=== PATIENT | female | born 2000 | race Caucasian/White ===

== ENCOUNTER 2018-03-23 13:58 | Inpatient (IN) | payer BC ==
[2018-03-23 14:29] LABS: ABS Basophils 0.1 10^3/ul (0-0.2); ABS Eosinophils 0.1 10^3/ul (0-0.6); ABS Lymphocytes 1.6 10^3/ul (1.0-4.8); ABS Monocytes 0.6 10^3/ul (0-0.8); ABS Neutrophils 5.3 10^3/ul (1.5-7.7); ABS Nucleated RBC 0 10^3/ul; Eosinophil % 0.7 % (0-6); Hematocrit 46 % (35-47); Hemoglobin 16.1 g/dl (12.0-16.0); Lymphocyte % 21.4 % (25-47); Mean Corpuscular HGB Conc 35 g/dl (31-36); Mean Corpuscular Hemoglobin 33 pg (27-31); Mean Corpuscular Volume 95 fL (80-97); Mean Platelet Volume 7.7 um3 (7.4-10.4); Nucleated Red Blood Cells % 0; Platelet Count 289 10^3/ul (150-450); Red Blood Count 4.89 10^6/ul (4.0-5.4); Red Cell Distribution Width 13 % (10.5-15); White Blood Count 7.7 10^3/ul (3.5-10.8)
[2018-03-23 14:45] LABS: EGFR Non-African American 95.6 (>60)
[2018-03-23] MEDS ORDERED: Al Hydrox/Mg Hydrox/Simet LIQ* 30 ML UDC PO PRN (23:29)
[2018-03-23] MEDS ORDERED: Acetaminophen TAB* 325 MG PO PRN (23:29)
--- NOTE | 2018-03-23 23:55 | ED ---
Tyler Kelley Natalie, scribed for James Bland MD on 03/23/18 at 2300 . Progress - Progress Note Progress Note: The patient is a sign-out from Dr. Valle at shift change. The patient will be voluntarily admitted to [facility] to Dr. Allison with dx of depressive disorder, unspecified. - Consult/PCP Time Called: 18:00 Course/Dx - Diagnoses Provider Diagnoses: Depressive disorder, not elsewhere classified Discharge - Sign-Out/Discharge Documenting (check all that apply): Discharge/Admit/Transfer - Discharge Plan Condition: Good Disposition: ADMITTED TO [facility] Referrals: Chandler Bean MD [Primary Care Provider] - - Billing Disposition and Condition Condition: GOOD Disposition: [facility] The documentation as recorded by the Tyler carrasco Natalie accurately reflects the service I personally performed and the decisions made by Baldo nava Kirk, MD.
[2018-03-24] MEDS: TESTOSTERONE GEL 25 MG (NF) IN 2.5 GM SIZE PACKET TOPICAL SCH ×2 (00:25→21:43)
[2018-03-24] MEDS ORDERED: Vitamin THERAPEUTIC TAB ONE (07:46)
[2018-03-24] MEDS: Vitamin THERAPEUTIC TAB PO SCH (09:45)
[2018-03-24] MEDS ORDERED: Ondansetron ODT TAB* 4 MG PO PRN (13:56)
--- NOTE | 2018-03-24 21:19 | HP ---
HISTORY AND PHYSICAL: DATE OF ADMISSION: 03/24/18 PROVIDER: Carmen Stanton NP, in Psychiatry. SUPERVISING PHYSICIAN: Dave Choi MD * (DICTATED BY CARMEN STANTON NP ) JUSTIFICATION FOR ADMISSION: The patient is in need of 24-hour supervision and care secondary to suicidal ideation. CHIEF COMPLAINT: "I've gotten really good of pretending I'm okay." HISTORY OF PRESENT ILLNESS: The patient is a 18-year-old female to male transgendered person, who is partnered, who has a history of depression and apparently manic episodes, who arrives by car and is on a voluntary status after having suicidal ideation and discussing it with a friend of his. The story is that Regino took Prozac prescribed by Lucius Schneider MD, and then became manic, feeling "amazing" until a few days later, there was "a crash," which he describes as a deep depression that included suicidal ideation. He talks about cycling moods that take a month or more or less to complete. His symptoms include when he is manic, decreased sleep, increased interest in things for example wanting to create a comic book that was hundreds of thousands of pages long, increased energy. He does not ever have a very good appetite and not thinking of suicide while manic and very talkative and goal directed. He also states that he made a lot of foolish mistakes in decision making when he was manic. When he is depressed, the most salient point is that he is suicidal, he has no energy, he does not want to get out of bed, he can barely go to work, interest in life is very low, and his sleep is much increased up to 12 to 16 hours a day. PAST PSYCHIATRIC HISTORY: Regino has been hospitalized 2 times on the adolescent unit here. He did have a suicide attempt at his last visit, which was 2 years ago. This past December of 2017, he discovered that he had a marijuana problem in that he smokes every day, panics when he does not have it and gets highly anxious. We discussed medications that might be appropriate for this as well as treatments and we will discuss those further. PAST MEDICAL HISTORY: There is nothing pathological, although he does take testosterone gel because he is transitioning from female to male. FAMILY HISTORY: He has a sister, who is 27, who has bipolar; a brother, who is 25, who has a "normal family." Mom and sister visited him today. [place]. He approximates 60% of the population were Yarsanism. He moved away at age 14. He discovered at ages 10 to 11 that he was trans, which was alarming in that community. He says he is not close to the family, but that they are supportive. SUBSTANCE ABUSE: He uses marijuana almost exclusively. He is not in any treatment for that right now, although he recognizes recently that it is a problem. SOCIAL HISTORY: He was raised in [place]. Currently, lives with his friend. He did not say there was anything more to that relationship. He enjoys drawing, music, video games. He used to read, but has stopped at this point. 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 He is not in any continuing school, he says this is not for him. No service, no legal problems. The friend he lives with is at her parent's house. REVIEW OF SYSTEMS: The patient reports feeling slightly fatigued. Denies shortness of breath, heat or cold intolerance, chest pain or abdominal pain. He denies neurological symptoms. Denies fevers or changes of weight. PHYSICAL EXAMINATION VITAL SIGNS: Include height of 5 feet 7 inches, weight 145 pounds. Temperature 97.6, pulse 63, respirations 14, oxygen sat is 100%, blood pressure is 102/67. For further exam data, please see emergency department records. MENTAL STATUS EXAMINATION: This is a slim person with male characteristics, who has short brown hair. He was well groomed. He is calm and cooperative. His speech is of normal rate, tone, and volume. He appears to be euthymic, but is also distressed and anxious under the surface. His thought processes are normal. He does not have any delusions. He is not homicidal. He does have suicidal ideation today. He does not have hallucinations. His insight is good. His judgment is fair. He is alert and oriented x3. He is an intelligent man. LABORATORY DATA: Samples that were drawn in the emergency room are either within normal limits or very close to normal limits. There is nothing alarming. DIAGNOSES: Bim I: Bipolar 1 disorder, current episode depressed. Bim II: Deferred. 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 IMPRESSION: This is a 18-year-old transgendered person transitioning from female to male, who also appears to have bipolar disorder as evidenced by manic episode triggered by Prozac administration. At the end of the manic episode, Regino became quite distressed and was having suicidal thoughts and thus came to the hospital. PLAN: The patient is admitted to the adult behavioral health unit and placed on q.15-minute checks for his own safety. The patient is encouraged to participate in supportive milieu, individual, and group therapy. Estimated length of stay is 5 to 7 days. We will titrate medications to efficacy and monitor for mood and thought content. Discharge planning will include outpatient providers. CARMEN STANTON, AURELIANO [id number]/CPS #: [id number] RADHA
[2018-03-24] MEDS: ARIPiprazole TAB* 5 MG PO SCH (21:44)
[2018-03-24] MEDS: FLUoxetine CAP* 20 MG PO SCH ×2 (21:44)
[2018-03-24] MEDS: Mirtazapine TAB* 15 MG PO SCH ×2 (21:44)
[2018-03-25] MEDS: Vitamin THERAPEUTIC TAB PO SCH (08:38)
--- NOTE | 2018-03-25 11:50 | ED ---
Elia Kelley Gabriel, scribed for Jace Valle MD on 03/23/18 at 1434 . Psychiatric Complaint - HPI Summary HPI Summary: This patient is a 18 year old F presenting to [facility] c/o of a depressive episode and SI. Last night she had a huge breakdown and is worried she has bipolar disorder which runs in the family. Patient reports a large wave of energy that ended with a large episode of depression. - History Of Current Complaint Chief Complaint: EDMentalHealth Time Seen by Provider: 03/23/18 14:03 Hx Obtained From: Patient Onset/Duration: Still Present Timing: Constant Severity Initially: Moderate Severity Currently: Moderate Character: Depressed Related History: Positive For: Prior Psychiatric Issues Has Suicidal: Reports: Thoughts - Allergies/Home Medications Allergies/Adverse Reactions: Allergies Allergy/AdvReac Type Severity Reaction Status Date / Time corn Allergy Unknown Verified 03/25/18 09:38 Reaction Details Home Medications: Home Medications Androgel Pump 2 pump TOPICAL DAILY 03/23/18 [History Confirmed 03/23/18] FLUoxetine CAP* [PROzac CAP*] 20 mg PO DAILY 03/23/18 [History Confirmed ] Mirtazapine TAB* [Remeron TAB*] 30 mg PO DAILY 03/23/18 [History Confirmed 03/23] PMH/Surg Hx/FS Hx/Imm Hx Respiratory History: Reports: Hx Asthma GI History: Reports: Other GI Disorders - Counselor Intolerance Musculoskeletal History: Reports: Hx Scoliosis Psychiatric History: Reports: Hx Anxiety, Hx Depression, Hx Panic Disorder, Hx Inpatient Treatment, Hx Community Mental Health Tx Denies: Hx Attention Deficit Hyperactivity Disorder, Hx Eating Disorder, Hx Post Traumatic Stress Disorder, Hx Schizophrenia, Hx Bipolar Disorder, Hx Suicide Attempt, Hx of Violent Episodes Against Others, Hx Substance Abuse, Other Psychiatric Issues/Disorders - Surgical History Surgery Procedure, Year, and Place: Scoliosis Repair, [place] Teeth Extraction Infectious Disease History: No Infectious Disease History: Denies: Traveled Outside the [place] in Last 30 Days - Family History Known Family History: Negative: Renal Disease, Respiratory Disease - Social History Alcohol Use: Rare Substance Use Type: Reports: None Smoking Status (MU): Never Smoked Tobacco Review of Systems Negative: Fever Positive: Depressed, Other - SI All Other Systems Reviewed And Are Negative: Yes Physical Exam - Summary Physical Exam Summary: VITAL SIGNS: Reviewed. GENERAL: Patient is a well-developed and nourished male who is lying comfortable in the stretcher. Patient is not in any acute respiratory distress. HEAD AND FACE: No signs of trauma. No ecchymosis, hematomas or skull depressions. No sinus tenderness. EYES: PERRLA, EOMI x 2, No injected conjunctiva, no nystagmus. EARS: Hearing grossly intact. Ear canals and tympanic membranes are within normal limits. MOUTH: Oropharynx within normal limits. NECK: Supple, trachea is midline, no adenopathy, no JVD, no carotid bruit, no c- spine tenderness, neck with full ROM. CHEST: Symmetric, no tenderness at palpation LUNGS: Clear to auscultation bilaterally. No wheezing or crackles. CVS: Regular rate and rhythm, S1 and S2 present, no murmurs or gallops appreciated. ABDOMEN: Soft, non-tender. No signs of distention. No rebound no guarding, and no masses palpated. Bowel sounds are normal. EXTREMITIES: FROM in all major joints, no edema, no cyanosis or clubbing. NEURO: Alert and oriented x 3. No acute neurological deficits. Speech is normal and follows commands. SKIN: Dry and warm PSYCH: Depressed, quiet, and denies any suicidal thoughts or plan. No homicidal thoughts or plan. No signs of psychosis or pressure speech. No tangential speech. Triage Information Reviewed: Yes Vital Signs On Initial Exam: Initial Vitals Temp Pulse Resp BP Pulse Ox 97.9 F 80 18 132/88 100 03/23/18 14:01 03/23/18 14:01 03/23/18 14:01 03/23/18 14:01 03/23/18 14:01 Vital Signs Reviewed: Yes Diagnostics - Vital Signs Vital Signs Temp Pulse Resp BP Pulse Ox 03/23/18 14:01 97.9 F 80 18 132/88 100 - Laboratory Lab Results: Lab Results 03/23/18 Range/Units 14:23 WBC 7.7 (3.5-10.8) 10^3/ul RBC 4.89 (4.0-5.4) 10^6/ul Hgb 16.1 H (12.0-16.0) g/dl Hct 46 (35-47) % MCV 95 (80-97) fL MCH 33 H (27-31) pg MCHC 35 (31-36) g/dl RDW 13 (10.5-15) % Plt Count 289 (150-450) 10^3/ul MPV 7.7 (7.4-10.4) um3 Neut % (Auto) 68.6 (38-83) % Lymph % (Auto) 21.4 L (25-47) % Rhea % (Auto) 8.4 H (0-7) % Eos % (Auto) 0.7 (0-6) % Baso % (Auto) 0.9 (0-2) % Absolute Neuts (auto) 5.3 (1.5-7.7) 10^3/ul Absolute Lymphs (auto) 1.6 (1.0-4.8) 10^3/ul Absolute Monos (auto) 0.6 (0-0.8) 10^3/ul Absolute Eos (auto) 0.1 (0-0.6) 10^3/ul Absolute Basos (auto) 0.1 (0-0.2) 10^3/ul Absolute Nucleated RBC 0 10^3/ul Nucleated RBC % 0 Result Diagrams: 03/23/18 14:23 03/23/18 14:23 Lab Statement: Any lab studies that have been ordered have been reviewed, and results considered in the medical decision making process. Course/Dx - Course Assessment/Plan: Blood work w/o a significant abnormality. She is medically cleared. She is awaiting for a MHE. Patient is hemodynamically stable and A+O x 3. Patient will be signed out to Dr. Bland at shift change. - Differential Dx/Clinical Impression Provider Diagnosis: Depressive disorder, not elsewhere classified Discharge - Sign-Out/Discharge Documenting (check all that apply): Sign-Out Patient Signing out patient TO: James Bland - Discharge Plan Condition: Good Disposition: ADMITTED TO [facility] - Billing Disposition and Condition Condition: GOOD Disposition: [facility]P-[facility] The documentation as recorded by the Elia carrasco Gabriel accurately reflects the service I personally performed and the decisions made by , Jace Valle MD.
--- NOTE | 2018-03-25 15:45 | PN ---
Subjective - Subjective Date of Service: 03/25/18 Service Type: 95617 Hosp care 25 min moderate complexity Subjective: "Regino" remains sad and blue today. He continues to contemplate suicide, although this is remitting a bit. Regino is very interested to know more about bipolar disorder and I agree to get him a list of books that might be helpful. We discuss his family a bit and he states he might need to be honest with his mom in the future about how she seems to overreact to him, so much so that he moved out of the house. Objective - Appearance Appearance: Thin Framed Dysmorphic Features: No Hygiene: Normal Grooming: Well Kept - Behavior Psychomotor Activities: Normal Exhibits Abnormal Movement: No - Attitude and Relatedness Attitude and Relatedness: Well Related Eye Contact: Fair - Speech Quality: Unpressured Latencies: Normal Quantity: Appropriate - Mood Patient's Decription of Mood: "Sad" - Affect Observed Affect: Fair Affect Consistent with: Dysphoria - Thought Process Patient's Thought Process: Coherent Thought Content: Yes Passive Wish, No Suicidal Planning, No Homicidal Ideation, No Paranoid Ideation - Sensorium Experiencing Hallucinations: No, Sensorium is Clear Type of Hallucinations: Visual: No, Auditory: No, Command: No - Level of Consciousness Level of Consciousness: Alert Orientation: Yes Intact, Yes Orientated to Time, Yes Orientated to Place, Yes Orientated to Person - Impulse Control Impulse Control: Tenuous - Insight and Judgement Insight and Judgement: Fair - Group Participation Particating in Group Activities: Yes - Medication Management Medication Management Adherence: Yes - Additional Observations Comments: Regino appears sad and forlorn. He feels like he has suicidal thoughts the continue to pop up throughout the day. These thoughts are frightening to him and he feels like he might act on them if he were released. Assessment - Assessment Merits Inpatient Hospitalization: For Immediate Safety Clinical Impression: Regino is a 18-year-old female to male transgender adult who suffers from bipolar disorder and is in the process of learning to deal with this stressor. Plan - Plan Treatment Plan: Name: LEFTY NIEVES Birthdate: 2000 [id number] Medications: Current Medications Acetaminophen (Tylenol Tab*) 650 mg PO Q4H PRN PRN Reason: PAIN or TEMP > 101 F Al Hydrox/Mg Hydrox/Simethicone (Maalox Plus*) 30 ml PO Q4H PRN PRN Reason: INDIGESTION Aripiprazole (Abilify Tab*) 5 mg PO BEDTIME [facility] Last Admin: 03/24/18 21:44 Dose: 5 mg Mirtazapine (Remeron Tab*) 30 mg PO BEDTIME MARC Last Admin: 03/24/18 21:44 Dose: 30 mg Multivitamins (Theragran Tab*) 1 tab PO DAILY [facility] Last Admin: 03/25/18 08:38 Dose: Not Given Ondansetron HCl (Zofran Odt Tab*) 4 mg PO Q8H PRN PRN Reason: NAUSEA/VOMITING Testosterone (Testosterone Gel 25 Mg/2.5 G) 50 mg TOPICAL BEDTIME [facility] Stop: 03/31/18 00:14 Last Admin: 03/24/18 21:43 Dose: 50 mg - Discharge Plan Discharge Plan: Outpatient Follow Up Additional Comments: Regino is planning to stay through the weekend to aid in the goal of reducing suicidal thoughts. he will stay with the intention of building skills and allowing medications to work.
[2018-03-25] MEDS: ARIPiprazole TAB* 5 MG PO SCH (20:27)
[2018-03-25] MEDS: TESTOSTERONE GEL 25 MG (NF) IN 2.5 GM SIZE PACKET TOPICAL SCH (20:27)
[2018-03-25] MEDS: Mirtazapine TAB* 15 MG PO SCH (20:27)
[2018-03-26] MEDS: Vitamin THERAPEUTIC TAB PO SCH (09:45)
--- NOTE | 2018-03-26 15:26 | PN ---
Subjective - Subjective Date of Service: 03/26/18 Service Type: [id number] Hosp care 25 min moderate complexity Subjective: Regino is feeling conflicted about his relationship with his father. Regino is feeling anxious about calling his dad. Both his parents have not been supportive of Regino's choice to transition to male. He is working hard to make money to pay for the surgery himself. He feels like his parents are not understanding and never really have been. Oddly, his mom mentioned on the phone while he's been hospitalized here that she thinks he has Asperger's disorder. That was upsetting to Regino, who has never felt good enough. Regino also talked about his conversation with his dad when his dad revealed he was going to divorce Regino's mother while his mother was psychiatrically hospitalized. In all , the dynamics of the family prove to be confusing and triggering. Objective - Appearance Appearance: Healthy Appearing Dysmorphic Features: No Hygiene: Normal Grooming: Well Kept - Behavior Psychomotor Activities: Normal Exhibits Abnormal Movement: No - Attitude and Relatedness Attitude and Relatedness: Cooperative Eye Contact: Fair - Speech Quality: Unpressured Latencies: Normal Quantity: Appropriate - Mood Patient's Decription of Mood: "Anxious" - Affect Observed Affect: Tense Affect Consistent with: Dysphoria - Thought Process Patient's Thought Process: Coherent Thought Content: Yes Passive Wish, Yes Suicidal Planning, No Homicidal Ideation, No Paranoid Ideation - Sensorium Experiencing Hallucinations: No, Sensorium is Clear Type of Hallucinations: Visual: No, Auditory: No, Command: No - Level of Consciousness Level of Consciousness: Alert Orientation: Yes Intact, Yes Orientated to Time, Yes Orientated to Place, Yes Orientated to Person - Impulse Control Impulse Control: Impaired - Insight and Judgement Insight and Judgement: Fair - Group Participation Particating in Group Activities: Yes - Medication Management Medication Management Adherence: Yes - Additional Observations Comments: Regino appears sad and forlorn. He feels like he has suicidal thoughts the continue to pop up throughout the day. These thoughts are frightening to him and he feels like he might act on them if he were released. Today he appears with increased anxiety related to family conflict and personal challenges. The anxiety seems to have destabilized him and led him to increased vulnerability to suicidal thoughts. Assessment - Assessment Merits Inpatient Hospitalization: For Immediate Safety Inpatient DSM-V Dx: F31.12 Clinical Impression: Regino is a 18-year-old female to male transgender adult who suffers from bipolar disorder and is in the process of learning to deal with this stressor. He is anxious today and frustrated that his anxiety seems to be free floating, although upon further examination, it appears to stem from relationship issues between him and his parents. In any case, his response to their relationship conflict seems to have caused him to have increased suicidal thoughts. Plan - Plan Treatment Plan: Name: LEFTY NIEVES Birthdate: 2000 [id number] Medications: Current Medications Acetaminophen (Tylenol Tab*) 650 mg PO Q4H PRN PRN Reason: PAIN or TEMP > 101 F Al Hydrox/Mg Hydrox/Simethicone (Maalox Plus*) 30 ml PO Q4H PRN PRN Reason: INDIGESTION Aripiprazole (Abilify Tab*) 5 mg PO BEDTIME MARC Last Admin: 03/25/18 20:27 Dose: 5 mg Mirtazapine (Remeron Tab*) 30 mg PO BEDTIME MARC Last Admin: 03/25/18 20:27 Dose: 30 mg Multivitamins (Theragran Tab*) 1 tab PO DAILY M[facility] Last Admin: 03/26/18 09:45 Dose: Not Given Ondansetron HCl (Zofran Odt Tab*) 4 mg PO Q8H PRN PRN Reason: NAUSEA/VOMITING Testosterone (Testosterone Gel 25 Mg/2.5 G) 50 mg TOPICAL BEDTIME MARC Stop: 03/31/18 00:14 Last Admin: 03/25/18 20:27 Dose: 50 mg - Discharge Plan Additional Comments: Regino is planning to stay through the weekend to aid in the goal of reducing suicidal thoughts. he will stay with the intention of building skills and allowing medications to work. He will use the supportive environment to make contact with family members whose prior behaviors would have destabilized Regino.
[2018-03-26] MEDS: TESTOSTERONE GEL 25 MG (NF) IN 2.5 GM SIZE PACKET TOPICAL SCH (21:11)
[2018-03-26] MEDS: Mirtazapine TAB* 15 MG PO SCH (21:11)
[2018-03-26] MEDS: ARIPiprazole TAB* 5 MG PO SCH (21:11)
[2018-03-27] MEDS: Vitamin THERAPEUTIC TAB PO SCH (07:27)
--- NOTE | 2018-03-27 16:22 | PN ---
Subjective - Subjective Date of Service: 03/27/18 Service Type: [id number] Hosp care 15 min low complexity Subjective: Elsa is complaining of her mind racing and feeling happy. In the milieu interacting with peers. Slept 6 hours last night and eating good. Denies active suicidal thoughts or intents. Denies hallucinations or delusions. Objective - Appearance Appearance: Healthy Appearing Dysmorphic Features: No Hygiene: Normal Grooming: Well Kept - Behavior Psychomotor Activities: Normal Exhibits Abnormal Movement: No - Attitude and Relatedness Attitude and Relatedness: Appropriate Eye Contact: Good - Speech Quality: Unpressured Latencies: Normal Quantity: Appropriate - Mood Patient's Decription of Mood: "Good" - Affect Observed Affect: Non-labile - Thought Process Patient's Thought Process: Coherent, Goal Directed Thought Content: No Passive Wish, No Suicidal Planning, No Homicidal Ideation, No Paranoid Ideation - Sensorium Experiencing Hallucinations: No, Sensorium is Clear Type of Hallucinations: Visual: No, Auditory: No, Command: No - Level of Consciousness Level of Consciousness: Alert Orientation: Yes Intact, Yes Orientated to Time, Yes Orientated to Place, Yes Orientated to Person - Impulse Control Impulse Control: Intact - Insight and Judgement Insight and Judgement: Fair - Group Participation Particating in Group Activities: Yes - Medication Management Medication Management Adherence: Yes Assessment - Assessment Merits Inpatient Hospitalization: For Immediate Safety, For Stabilization, For Discharge Planning, Pending Safe DC Plan Inpatient DSM-V Dx: F31.12 Plan - Plan Treatment Plan: Name: ELSA NIEVES Birthdate: 2000 [id number] Continued Medication Management: Continue Outpt Medication Medications: Current Medications Acetaminophen (Tylenol Tab*) 650 mg PO Q4H PRN PRN Reason: PAIN or TEMP > 101 F Al Hydrox/Mg Hydrox/Simethicone (Maalox Plus*) 30 ml PO Q4H PRN PRN Reason: INDIGESTION Aripiprazole (Abilify Tab*) 5 mg PO BEDTIME MARC Last Admin: 03/26/18 21:11 Dose: 5 mg Mirtazapine (Remeron Tab*) 30 mg PO BEDTIME MARC Last Admin: 03/26/18 21:11 Dose: 30 mg Multivitamins (Theragran Tab*) 1 tab PO DAILY MARC Last Admin: 03/27/18 07:27 Dose: Not Given Ondansetron HCl (Zofran Odt Tab*) 4 mg PO Q8H PRN PRN Reason: NAUSEA/VOMITING Testosterone (Testosterone Gel 25 Mg/2.5 G) 50 mg TOPICAL BEDTIME MARC Stop: 03/31/18 00:14 Last Admin: 03/26/18 21:11 Dose: 50 mg - Discharge Plan Discharge Plan: Outpatient Follow Up Outpatient Program: [facility]
[2018-03-27] MEDS: ARIPiprazole TAB* 5 MG PO SCH (20:59)
[2018-03-27] MEDS: Mirtazapine TAB* 15 MG PO SCH (21:00)
[2018-03-27] MEDS: TESTOSTERONE GEL 25 MG (NF) IN 2.5 GM SIZE PACKET TOPICAL SCH (21:01)
[2018-03-28] MEDS: Vitamin THERAPEUTIC TAB PO SCH (08:53)
[2018-03-28] MEDS: ARIPiprazole TAB* 5 MG PO SCH (21:13)
[2018-03-28] MEDS: Mirtazapine TAB* 15 MG PO SCH (21:14)
[2018-03-28] MEDS: TESTOSTERONE GEL 25 MG (NF) IN 2.5 GM SIZE PACKET TOPICAL SCH (21:15)
[2018-03-29] MEDS: Vitamin THERAPEUTIC TAB PO SCH (09:08)
--- NOTE | 2018-03-29 11:13 | PN ---
Subjective - Subjective Date of Service: 03/29/18 Service Type: 82037 Hosp care 15 min low complexity Subjective: Regino is doing well. He feels better and is in good spirits. He is unsure if it is the groups, the meds, or the time, but he feels better. His father visited and he got a lot of misunderstandings sorted out. His mom and sister are going to visit today and he is excited. Objective - Appearance Appearance: Healthy Appearing Hygiene: Normal Grooming: Fairly Well Kept - Behavior Psychomotor Activities: Normal Exhibits Abnormal Movement: No - Attitude and Relatedness Attitude and Relatedness: Well Related Eye Contact: Good - Speech Quality: Unpressured Latencies: Normal Quantity: Appropriate - Mood Patient's Decription of Mood: "Great" - Affect Observed Affect: Good Affect Consistent with: Euthymia - Thought Process Patient's Thought Process: Coherent Thought Content: No Passive Wish, No Suicidal Planning, No Homicidal Ideation, No Paranoid Ideation - Sensorium Experiencing Hallucinations: No, Sensorium is Clear Type of Hallucinations: Visual: No, Auditory: No, Command: No - Level of Consciousness Level of Consciousness: Alert Orientation: Yes Intact, Yes Orientated to Time, Yes Orientated to Place, Yes Orientated to Person - Impulse Control Impulse Control: Intact - Insight and Judgement Insight and Judgement: Good - Group Participation Particating in Group Activities: Yes - Medication Management Medication Management Adherence: Yes - Additional Observations Comments: Regino is disheveled from just having gotten out of bed. He is happy and pleasant and has confidence in his ability to say that he's feeling significantly better. He is well related and ready to consider discharge. Assessment - Assessment Merits Inpatient Hospitalization: For Stabilization Inpatient DSM-V Dx: F31.12 Clinical Impression: Regino is a 18-year-old female to male transgender adult who suffers from bipolar disorder and is in the process of learning to deal with this stressor. Regino is learning that his family is more supportive than he thought. He is feeling more stable and is confident in his ability to go on without suicidal thoughts. Plan - Plan Treatment Plan: Name: LEFTY NIEVES Birthdate: 2000 [id number] Medications: Current Medications Acetaminophen (Tylenol Tab*) 650 mg PO Q4H PRN PRN Reason: PAIN or TEMP > 101 F Al Hydrox/Mg Hydrox/Simethicone (Maalox Plus*) 30 ml PO Q4H PRN PRN Reason: INDIGESTION Aripiprazole (Abilify Tab*) 5 mg PO BEDTIME [facility] Last Admin: 03/28/18 21:13 Dose: 5 mg Mirtazapine (Remeron Tab*) 30 mg PO BEDTIME MARC Last Admin: 03/28/18 21:14 Dose: 30 mg Multivitamins (Theragran Tab*) 1 tab PO DAILY [facility] Last Admin: 03/29/18 09:08 Dose: Not Given Ondansetron HCl (Zofran Odt Tab*) 4 mg PO Q8H PRN PRN Reason: NAUSEA/VOMITING Testosterone (Testosterone Gel 25 Mg/2.5 G) 50 mg TOPICAL BEDTIME MARC Stop: 03/31/18 00:14 Last Admin: 03/28/18 21:15 Dose: 50 mg - Discharge Plan Discharge Plan: Outpatient Follow Up Additional Comments: Regino is planning to stay through the weekend to aid in the goal of reducing suicidal thoughts. he will stay with the intention of building skills and allowing medications to work. He will use the supportive environment to make contact with family members whose prior behaviors would have destabilized Regino. Update: Amparo met with his dad and his mom and sister are coming today. Despite having had difficulty with those relationships, he is discovering that they will be useful outpatient and he is excited to have these renewed contacts.
[2018-03-29] MEDS: TESTOSTERONE GEL 25 MG (NF) IN 2.5 GM SIZE PACKET TOPICAL SCH (20:56)
[2018-03-29] MEDS: Mirtazapine TAB* 15 MG PO SCH (20:56)
[2018-03-29] MEDS: ARIPiprazole TAB* 5 MG PO SCH (20:57)
[2018-03-30 07:51] VITALS: BP 114/75
[2018-03-30] MEDS: Vitamin THERAPEUTIC TAB PO SCH (11:53)
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
== END 2018-03-30 12:25 | disposition home or self-care (01) | DRG 753 ==
LOC: ED 13:58 → BSU 03-24 01:50
PROVIDERS: ADMIT Psychiatry & Neurology Psychiatry; ATTEND Psychiatry & Neurology Psychiatry
DX: F31.12 Bipolar disorder, current episode manic without psychotic features, moderate (principal); R45.851 Suicidal ideations; F12.90 Cannabis use, unspecified, uncomplicated; J45.909 Unspecified asthma, uncomplicated; F41.0 Panic disorder [episodic paroxysmal anxiety]; Z72.89 Other problems related to lifestyle; Z81.8 Family history of other mental and behavioral disorders; Z91.018 Allergy to other foods
CPT/HCPCS: 36415; 80053; 80061; 80307; 80320; 80329; 83036; 84443; 85025; 99222; 99231; 99232; 99285; A9270-GY; G0480

== ENCOUNTER 2019-04-10 13:02 | Emergency (ER) | payer BC ==
[2019-04-10 13:29] VITALS: BP 104/63
--- NOTE | 2019-04-10 13:32 | UC ---
Ear Complaint HPI - HPI Summary HPI Summary: Mild left earache and feeling of fullness over the past few days. No recent cold symptoms. - History of Current Complaint Chief Complaint: UCEar Stated Complaint: EAR PAIN Time Seen by Provider: 04/10/19 13:20 Hx Obtained From: Patient Hx Last Menstrual Period: unknown ?: No Onset/Duration: Gradual Onset Severity Initially: Mild Severity Currently: Mild Pain Intensity: 0 Aggravating Factors: Nothing Alleviating Factors: Nothing - Allergies/Home Medications Allergies/Adverse Reactions: Allergies Allergy/AdvReac Type Severity Reaction Status Date / Time corn Allergy Vomiting Verified 04/10/19 13:29 Home Medications: Home Medications Dextroamphetamine/Amphetamine [Adderall 20 mg Tablet] 1 tab PO DAILY 04/10/19 [ History Confirmed 04/10/19] lamoTRIgine [Lamictal] 100 mg PO DAILY 04/10/19 [History Confirmed 04/10/19] PMH/Surg Hx/FS Hx/Imm Hx Previously Healthy: Yes - Surgical History Surgical History: Yes Surgery Procedure, Year, and Place: Scoliosis Repair, [place] Teeth Extraction - Family History Known Family History: Negative: Renal Disease, Respiratory Disease - Social History Alcohol Use: Rare Substance Use Type: Marijuana Substance Use Comment - Amount & Last Used: states that she has been smoking marijuana daily since /Dec Smoking Status (MU): Never Smoked Tobacco Have You Smoked in the Last Year: No - Immunization History Most Recent Influenza Vaccination: Never Most Recent Pneumonia Vaccination: n/a Review of Systems All Other Systems Reviewed And Are Negative: Yes ENT: Positive: Ear Ache - Feeling of left ear fullness and mild discomfort. Is Patient Immunocompromised?: No Physical Exam Triage Information Reviewed: Yes Appearance: Well-Appearing, No Pain Distress, Well-Nourished Vital Signs: Initial Vital Signs Temp 98.1 F 04/10/19 13:23 Pulse 87 04/10/19 13:23 Resp 16 04/10/19 13:23 BP 104/63 04/10/19 13:23 Pulse Ox 99 04/10/19 13:23 Vital Signs Reviewed: Yes Eyes: Positive: Conjunctiva Clear ENT: Positive: Pharynx normal, Uvula midline, Other - Right TM normal, unable to visualize Left Tm due to cerumen impaction Neck: Positive: Supple, Nontender, No Lymphadenopathy Respiratory: Positive: Lungs clear, Normal breath sounds, No respiratory distress, No accessory muscle use Cardiovascular: Positive: RRR, No Murmur, Pulses Normal, Brisk Capillary Refill Musculoskeletal Exam: Normal Neurological Exam: Normal Psychological Exam: Normal Skin Exam: Normal Ear Complaint Course/Dx - Course Course Of Treatment: Ear lavage left ear done successfully by [facility] staff with warm water. I was able to remove cerumen from the right ear canal with the curette. Both TM's pearly estrada with good landmarks and light reflex. - Differential Dx/Diagnosis Provider Diagnosis: Impacted cerumen of left ear, Excessive cerumen in right ear canal Discharge - Sign-Out/Discharge Documenting (check all that apply): Patient Departure All imaging exams completed and their final reports reviewed: No Studies - Discharge Plan Condition: Good Disposition: HOME Patient Education Materials: Cerumen Impaction (ED) Referrals: Chandler Bean MD [Primary Care Provider] - Additional Instructions: Follow up with your primary care provider as needed. - Billing Disposition and Condition Condition: GOOD Disposition: Home - Attestation Statements Provider Attestation: Per institutional requirements, I have reviewed the chart, however, I was not consulted specifically or made aware of this patient by the midlevel provider. I did not personally evaluate, interact with , or disposition this patient.
== END 2019-04-10 13:54 | disposition home or self-care (01) ==
LOC: UCCORT 13:02
DX: H61.23 Impacted cerumen, bilateral (principal); Z91.018 Allergy to other foods
CPT/HCPCS: 69210; 99212; G0463

== ENCOUNTER 2020-08-12 11:01 | Inpatient (IN) ==
[2020-08-12 11:46] LABS: Urine Appearance Clear; Urine Bilirubin Negative (Negative); Urine Blood Negative (Negative); Urine Color Straw; Urine Glucose Negative (Negative); Urine Ketones Negative (Negative); Urine Nitrite Negative (Negative); Urine Protein Negative (Negative); Urine Specific Gravity 1.003 (1.010-1.030); Urine Urobilinogen Negative (Negative)
[2020-08-12 12:03] LABS: Urine Benzodiazepine Screen None Detected (None Detect); Urine Cannabinoids Screen Presumptive Positive (None Detect); Urine Opiates Screen None Detected (None Detect)
[2020-08-12 12:52] LABS: ABS Basophils 0.1 10^3/ul (0-0.2); ABS Eosinophils 0.3 10^3/ul (0-0.6); ABS Lymphocytes 1.3 10^3/ul (1.0-4.8); ABS Monocytes 0.6 10^3/ul (0-0.8); ABS Neutrophils 5.2 10^3/ul (1.5-7.7); Hematocrit 42 % (35-47); Hemoglobin 14.8 g/dL (12.0-16.0); Lymphocyte % 17.1 %; Mean Corpuscular HGB Conc 35 g/dL (31-36); Mean Corpuscular Hemoglobin 33 pg (27-31); Mean Corpuscular Volume 95 fL (80-97); Mean Platelet Volume 6.8 fL (7.4-10.4); Platelet Count 299 10^3/uL (150-450); Red Blood Count 4.45 10^6 /uL (3.70-4.87); Red Cell Distribution Width 12 % (10-15); White Blood Count 7.4 10^3/uL (3.5-10.8)
[2020-08-12 13:10] LABS: ALT 17 U/L (7-52); AST 18 U/L (13-39); Albumin 4.6 g/dL (3.2-5.2); Albumin/Globulin Ratio 1.6 (1-3); Alkaline Phosphatase 62 U/L (34-104); Anion Gap 7 mmol/L (2-11); BUN/Creatinine Ratio 6.9 (8-20); Blood Urea Nitrogen 5 mg/dL (6-24); CO2 Carbon Dioxide 22 mmol/L (22-32); Calcium 9.8 mg/dL (8.6-10.3); Chloride 108 mmol/L (101-111); EGFR African American 122.6 (>60); EGFR Non-African American 101.3 (>60); Globulin 2.8 g/dL (2-4); Glucose 95 mg/dL (70-100); Sodium 137 mmol/L (135-145); Total Protein 7.4 g/dL (6.4-8.9)
[2020-08-12 13:16] LABS: Acetaminophen < 15 mcg/mL; Alcohol, S < 10 mg/dL (<10); Lithium 0.53 mmol/L (0.6-1.2); Salicylate < 2.50 mg/dL (<30)
[2020-08-12 13:31] LABS: TSH Ultra Thyroid Stim Horm 1.49 mcIU/mL (0.34-5.60)
[2020-08-12] MEDS ORDERED: Al Hydrox/Mg Hydrox/Simet LIQ 30 ML UDC PO PRN (17:02)
[2020-08-12] MEDS: Lithium Carbonate ER 450mg TAB PO SCH (22:04)
[2020-08-13] MEDS: Vitamin THERAPEUTIC TAB PO SCH (08:44)
[2020-08-13] MEDS ORDERED: Atomoxetine 10 mg CAP (NF) PO SCH (09:00)
[2020-08-13] MEDS ORDERED: Influenza VAC *QUAD* 2020-21* 0.5 ML SYRINGE IM ONE (09:00)
[2020-08-13] MEDS: Lithium Carbonate ER 450mg TAB PO SCH (21:35)
[2020-08-14 07:49] LABS: HDL Cholesterol 40.6 mg/dL
[2020-08-14] MEDS: Vitamin THERAPEUTIC TAB PO SCH (08:20)
[2020-08-14] MEDS ORDERED: CMC: Atomoxetine 18 mg CAP (NF) PO SCH (09:00)
[2020-08-14] MEDS ORDERED: Lithium Carbonate ER 450mg TAB PO SCH (21:00)
[2020-08-14] MEDS: Lithium Carb ER 300 mg TAB(NF) PO SCH (21:12)
[2020-08-15] MEDS: ATOMOXETINE 18 MG PO SCH (08:16)
[2020-08-15] MEDS: Vitamin THERAPEUTIC TAB PO SCH (08:18)
[2020-08-15] MEDS: Lithium Carb ER 300 mg TAB(NF) PO SCH (21:14)
[2020-08-16] MEDS: ATOMOXETINE 18 MG PO SCH (08:28)
[2020-08-16] MEDS: Vitamin THERAPEUTIC TAB PO SCH (08:30)
[2020-08-16] MEDS: Lithium Carb ER 300 mg TAB(NF) PO SCH (22:31)
[2020-08-17] MEDS: ATOMOXETINE 18 MG PO SCH (08:35)
[2020-08-17] MEDS: Vitamin THERAPEUTIC TAB PO SCH (09:59)
[2020-08-17] MEDS: Lithium Carb ER 300 mg TAB(NF) PO SCH (21:53)
[2020-08-18] MEDS: ATOMOXETINE 18 MG PO SCH (08:18)
[2020-08-18] MEDS: Vitamin THERAPEUTIC TAB PO SCH (08:19)
[2020-08-18] MEDS: Lithium Carb ER 300 mg TAB(NF) PO SCH (21:13)
[2020-08-19] MEDS: ATOMOXETINE 18 MG PO SCH (08:26)
[2020-08-19] MEDS: Vitamin THERAPEUTIC TAB PO SCH (08:26)
[2020-08-19] MEDS: Lithium Carb ER 300 mg TAB(NF) PO SCH (20:38)
[2020-08-20 08:04] VITALS: BP 121/75
[2020-08-20] MEDS: ATOMOXETINE 18 MG PO SCH (08:44)
[2020-08-20] MEDS: Vitamin THERAPEUTIC TAB PO SCH (08:44)
== END 2020-08-20 13:30 | disposition home or self-care (01) | DRG 753 ==
LOC: ED 11:01 → BSU 16:37
PROVIDERS: ADMIT Psychiatry & Neurology Psychiatry; ATTEND Psychiatry & Neurology Psychiatry

== ENCOUNTER 2022-08-04 12:38 | Inpatient (IN) ==
[2022-08-04 18:51] LABS: ABS Basophils 0.1 10^3/ul (0-0.2); ABS Eosinophils 0.5 10^3/ul (0-0.6); ABS Lymphocytes 2.5 10^3/ul (1.0-4.8); ABS Monocytes 0.7 10^3/ul (0-0.8); ABS Neutrophils 6.1 10^3/ul (1.5-7.7); Eosinophil % 5.3 %; Hematocrit 40 % (35-47); Hemoglobin 13.7 g/dL (12.0-16.0); Lymphocyte % 25.8 %; Mean Corpuscular HGB Conc 34 g/dL (31-36); Mean Corpuscular Hemoglobin 32 pg (27-31); Mean Corpuscular Volume 96 fL (80-97); Mean Platelet Volume 7.6 fL (7.4-10.4); Platelet Count 325 10^3/uL (150-450); Red Blood Count 4.22 10^6 /uL (3.70-4.87); Red Cell Distribution Width 13 % (10-15); White Blood Count 9.9 10^3/uL (3.5-10.8)
[2022-08-04 19:03] LABS: Urine Appearance Clear; Urine Bilirubin Negative (Negative); Urine Blood Negative (Negative); Urine Color Yellow; Urine Glucose Negative (Negative); Urine Ketones Negative (Negative); Urine Nitrite Negative (Negative); Urine Protein Negative (Negative); Urine Specific Gravity 1.011 (1.002-1.030); Urine Urobilinogen Negative (Negative)
[2022-08-04 19:20] LABS: ALT 12 U/L (7-52); AST 16 U/L (13-39); Albumin 4.4 g/dL (3.2-5.2); Albumin/Globulin Ratio 1.9 (1-3); Alcohol, S < 13 mg/dL (<13); Alkaline Phosphatase 60 U/L (35-149); Anion Gap 4 mmol/L (2-11); Blood Urea Nitrogen 7 mg/dL (6-24); CO2 Carbon Dioxide 28 mmol/L (22-32); Calcium 9.8 mg/dL (8.6-10.3); Chloride 107 mmol/L (101-111); Globulin 2.3 g/dL (2-4); Glucose 75 mg/dL (70-100); Potassium 4.2 mmol/L (3.5-5.0); Salicylate < 2.50 mg/dL (<30); Sodium 139 mmol/L (135-145); Total Protein 6.7 g/dL (6.4-8.9)
[2022-08-04 19:22] LABS: Acetaminophen < 15 mcg/mL; HCG Pregnancy < 0.60 mIU/mL; Urine Benzodiazepine Screen None Detected (None Detect); Urine Cannabinoids Screen Presumptive Positive (None Detect); Urine Opiates Screen None Detected (None Detect)
[2022-08-04 19:29] LABS: TSH Ultra Thyroid Stim Horm 1.59 mcIU/mL (0.34-5.60)
[2022-08-04 19:34] LABS: Lithium 0.74 mmol/L (0.6-1.2)
[2022-08-04] MEDS: Lithium Carbonate ER 450mg TAB PO SCH (21:27)
[2022-08-04] MEDS: Lithium Carb ER 300 mg TAB(NF) PO SCH (21:27)
[2022-08-05 08:33] LABS: HDL Cholesterol 39.7 mg/dL
[2022-08-05] MEDS: Vitamin THERAPEUTIC TAB PO SCH (08:47)
[2022-08-05] MEDS: ATOMOXETINE 40 MG PO SCH (08:47)
[2022-08-05] MEDS: Lithium Carbonate ER 450mg TAB PO SCH (20:43)
[2022-08-05] MEDS: Lithium Carb ER 300 mg TAB(NF) PO SCH (20:44)
[2022-08-06] MEDS: Vitamin THERAPEUTIC TAB PO SCH (07:42)
[2022-08-06] MEDS: ATOMOXETINE 40 MG PO SCH (07:42)
[2022-08-06] MEDS: Lithium Carb ER 300 mg TAB(NF) PO SCH (20:17)
[2022-08-06] MEDS: Lithium Carbonate ER 450mg TAB PO SCH (20:17)
[2022-08-07] MEDS: Vitamin THERAPEUTIC TAB PO SCH (09:05)
[2022-08-07] MEDS: ATOMOXETINE 40 MG PO SCH (09:05)
[2022-08-07] MEDS: Lithium Carb ER 300 mg TAB(NF) PO SCH (20:50)
[2022-08-07] MEDS: Lithium Carbonate ER 450mg TAB PO SCH (20:50)
[2022-08-08] MEDS: Vitamin THERAPEUTIC TAB PO SCH (07:49)
[2022-08-08] MEDS: ATOMOXETINE 40 MG PO SCH (07:49)
[2022-08-08 08:01] VITALS: BP 105/72
== END 2022-08-08 18:19 | disposition home or self-care (01) | DRG 753 ==
LOC: ED 12:38 → EDHOLD 18:50 → BSU 20:36
PROVIDERS: ADMIT Psychiatry & Neurology Psychiatry; ATTEND Psychiatry & Neurology Psychiatry

== ENCOUNTER 2023-10-12 13:22 | Inpatient (IN) ==
[2023-10-12] MEDS ORDERED: Al Hydrox/Mg Hydrox/Simet LIQ 30 ML UDC PO PRN (16:12)
[2023-10-12 16:36] LABS: ABS Basophils 0.1 10^3/uL (0.0-0.1); ABS Eosinophils 0.2 10^3/uL (0.0-0.5); ABS Lymphocytes 1.9 10^3/uL (1.0-4.8); ABS Monocytes 0.7 10^3/uL (0.0-0.9); ABS Neutrophils 5.6 10^3/uL (1.5-7.6); Eosinophil % 2.1 %; Hematocrit 41.6 % (35-45); Hemoglobin 14.5 g/dL (11.5-14.3); Lymphocyte % 22.4 %; Mean Corpuscular Hemoglobin 32.9 pg (27-33); Mean Corpuscular Hgb Conc 34.7 g/dL (31-36); Mean Corpuscular Volume 94.6 fL (80-97); Mean Platelet Volume 7.3 fL (7.5-11.2); Platelet Count 314 10^3/uL (150-450); Red Cell Distribution Width 12.8 % (12-17); White Blood Count 8.4 10^3/uL (3.8-11.8)
[2023-10-12 16:46] LABS: Urine Appearance Cloudy; Urine Bilirubin Negative (Negative); Urine Blood Negative (Negative); Urine Color Yellow; Urine Glucose Negative (Negative); Urine Ketones Negative (Negative); Urine Nitrite Negative (Negative); Urine Protein Negative (Negative); Urine Specific Gravity 1.018 (1.002-1.030); Urine Urobilinogen Negative (Negative)
[2023-10-12 17:01] LABS: Urine Benzodiazepine Screen None Detected (None Detect); Urine Cannabinoids Screen Presumptive Positive (None Detect); Urine Opiates Screen None Detected (None Detect)
[2023-10-12 17:16] LABS: Albumin 4.6 g/dL (3.2-5.2); Albumin/Globulin Ratio 1.9 (1-3); Calcium 9.5 mg/dL (8.6-10.3); Creatinine, Serum 0.62 mg/dL (0.51-0.95); Globulin 2.4 g/dL (2-4); Total Bilirubin 0.4 mg/dL (0.2-1.0); eGFR CKD-EPI 126.7 (>60)
[2023-10-12 17:54] LABS: TSH Ultra Thyroid Stim Horm 0.6 mcIU/mL (0.34-5.60)
[2023-10-13 08:32] LABS: HDL Cholesterol 39.4 mg/dL
[2023-10-13] MEDS ORDERED: Influenza vaccine *QUAD* *2023-24* 0.5 ML SYRINGE IM ONE (09:00)
[2023-10-13] MEDS: Vitamin THERAPEUTIC TAB PO SCH (10:59)
[2023-10-14] MEDS: Vitamin THERAPEUTIC TAB PO SCH (13:02)
[2023-10-15 09:26] VITALS: BP 113/70
[2023-10-15] MEDS: Vitamin THERAPEUTIC TAB PO SCH (10:37)
[2023-10-16] MEDS: Vitamin THERAPEUTIC TAB PO SCH (08:45)
[2023-10-16] MEDS ORDERED: LISDEXAMFETAMINE 10 MG PO ONE (10:03)
== END 2023-10-16 13:00 | disposition home or self-care (01) | DRG 753 ==
LOC: ED 13:22 → EDHOLD 16:12 → BSU 17:23
PROVIDERS: ADMIT Psychiatry & Neurology Psychiatry; ATTEND Psychiatry & Neurology Psychiatry